=== PATIENT | female | born 1965 | race Caucasian/White ===

== ENCOUNTER 2020-06-17 22:10 | Emergency (ER) | payer OTHER ==
[~2020-06-17] VITALS: Ht 170.2 cm; Wt 75.0 kg
[2020-06-17 22:20] VITALS: BP 146/85
[2020-06-17] MEDS ORDERED: FLUORESCEIN 1MG EYE STRIP. OU ONE (22:45)
[2020-06-17] MEDS ORDERED: TETRACAINE 0.5% OPHTH SOLUTION 4ML BOTTLE. OU ONE (22:45)
--- NOTE | 2020-06-17 22:47 | PHYS DOC ---
General Adult EDM: Chief Complaint: EYE PROBLEMS HPI: HPI: Patient is a bilateral eye burning and pain. Patient states that she had taken her contacts out which are used every 2 weeks and watch a movie with her glasses on. Patient states she went to bed but woke up with severe eye burning in both eyes. Little bit of tearing but no discharge. Denies any recent chemical exposures, natural water exposure, bright lights or welding. Review of Systems: Review of Systems: Constitutional: Denies fever or chills Eyes: Denies change in visual acuity, bilateral eye pain and watering, no discharge, slight redness HENT: Denies nasal congestion or sore throat Respiratory: Denies cough or shortness of breath Cardiovascular: Denies chest pain or edema GI: Denies abdominal pain, nausea, vomiting, bloody stools or diarrhea : Denies dysuria Musculoskeletal: Denies back pain or joint pain Integument: Denies rash Neurologic: Denies headache, focal weakness or sensory changes Endocrine: Denies polyuria or polydipsia Lymphatic: Denies swollen glands Psychiatric: Denies depression or anxiety Current Medications: Current Meds: Current Medications Medications (Trade) Dose Ordered Sig/Juana Start Time Stop Time Status Last Admin Dose Admin Fluorescein Sodium (Ful-Daylin 1mg) 1 strip 1X ONCE 06/17/20 22:45 06/17/20 22:46 UNV Tetracaine HCl (Tetracaine) 1 drop 1X ONCE 06/17/20 22:45 06/17/20 22:46 UNV Allergies: Allergies: Allergies Coded Allergies Type Severity Reaction Last Updated Verified Penicillins Allergy Unknown 06/17/20 Yes erythromycin base Allergy Unknown 06/17/20 Yes Physical Exam: PE: Constitutional: Well developed, well nourished, mild acute distress, non-toxic appearance. [] HENT: Normocephalic, atraumatic, bilateral external ears normal, oropharynx [address], no oral exudates, nose normal. [] Eyes: PERRLA, EOMI, mild injection of the conjunctiva. Examined with fluorescein and in the right eye to slightly dendritic lesions showed fluorescein uptake at the 9 o'clock position and 4 o'clock position, neither lesion involved iris or cornea. Left eye shows single small dendritic lesion at 7 o'clock position also not involving the cornea. No pain with extraocular movements, no proptosis, negative Alise sign, no foreign body. Neck: Normal range of motion, no tenderness, supple, no stridor. [] Cardiovascular:Heart rate regular rhythm, no murmur [] Lungs & Thorax: Bilateral breath sounds clear to auscultation [] Abdomen: Bowel sounds normal, soft, no tenderness, no masses, no pulsatile masses. [] Skin: Warm, dry, no erythema, no rash. [] Back: No tenderness, no CVA tenderness. [] Extremities: No tenderness, no cyanosis, no clubbing, ROM intact, no edema. [] Neurologic: Alert and oriented X 3, normal motor function, normal sensory function, no focal deficits noted. [] Psychologic: Affect normal, judgement normal, mood normal. [] EKG: EKG: [] Radiology/Procedures: Radiology/Procedures: [] Heart Score: Risk Factors: Risk Factors: DM, Current or recent (<one month) smoker, HTN, HLP, family history of CAD, obesity. Risk Scores: Score 0 - 3: 2.5% MACE over next 6 weeks - Discharge Home Score 4 - 6: 20.3% MACE over next 6 weeks - Admit for Clinical Observation Score 7 - 10: 72.7% MACE over next 6 weeks - Early Invasive Strategies Course & Med Decision Making: Course & Med Decision Making Pain relieved with tetracaine. Patient's presentation is consistent with Pseudomonas infection secondary to contact lens use. Discussed risk factors for herpes infection and patient has none. Findings more consistent with Pseudomonas infection. Treated with antibiotics in the emergency department and sent home with bottle. [] Mary Disclaimer: Mary Disclaimer: This electronic medical record was generated, in whole or in part, using a voice recognition dictation system. Departure Departure: Impression: Primary Impression: Bacterial conjunctivitis of both eyes Disposition: 01 DC HOME SELF CARE/HOMELESS Condition: STABLE Referrals: PCP,NO (PCP) Patient Instructions: Bacterial Conjunctivitis Additional Instructions: 1 drop of antibiotic (Vigamox) in each eye every 8 hours for 7 days. Follow-up with your entry level buyer. Call your entry level buyer if not better in 2 days or worsening symptoms. Discard your contacts, contact case, and contact solution that you have been using and replace. Use glasses until symptoms completely resolved, no contacts until symptoms have completely resolved. Scripts Ketorolac Tromethamine (KETOROLAC TROMETHAMINE) 5 Ml Drops 1 DROP EACHEYE QID for pain for 5 Days, #5 ML 0 Refills Prov: DAYSI JORGENSEN MD 06/17/20 DAYSI JORGENSEN MD Jun 17, 2020 22:47
[2020-06-17] MEDS ORDERED: KETO5DRO72 EACHEYE (22:55)
[2020-06-17] MEDS ORDERED: MOXIFLOXACIN 0.5% OPHTH SOLUTION 3ML BOTTLE. OU ONE (23:15)
[2020-06-17] MEDS ORDERED: IBUPROFEN 600 MG TABLET. PO ONE (23:15)
== END 2020-06-17 23:10 | disposition home or self-care (01) ==
LOC: ER 22:10
DX: H10.89 Other conjunctivitis (principal); Z88.0 Allergy status to penicillin; Z88.1 Allergy status to other antibiotic agents
CPT/HCPCS: 99284

== ENCOUNTER 2020-07-15 21:02 | Emergency (ER) | payer OTHER ==
[~2020-07-15] VITALS: Ht 170.2 cm; Wt 77.6 kg
[~2020-07-15 21:02] MED LIST: KETO5DRO72 EACHEYE
[2020-07-15 21:10] VITALS: BP 126/84
[2020-07-15] MEDS ORDERED: PREDNISOLONE ACETATE 1% OD (21:51)
[2020-07-15] MEDS ORDERED: MOXIFLOXACIN 0.5% OPHTH SOLUTION 3ML BOTTLE. OU ONE (22:00)
[2020-07-15] MEDS ORDERED: oxyCODONE/APAP 5/325 1 TAB TABLET PO ONE (22:15)
[2020-07-15] MEDS ORDERED: TETRACAINE 0.5% OPHTH SOLUTION 4ML BOTTLE. OU ONE (22:15)
--- NOTE | 2020-07-15 22:35 | PHYS DOC ---
Past History Past Medical History: No Pertinent History Past Surgical History: Tonsillectomy Additional Past Surgical Histo: BREAST AUGMENTATION Alcohol Use: None Adult General Chief Complaint Chief Complaint: EYE PROBLEMS HPI HPI Patient is a 54-year-old female who presents with bilateral eye itching and clear watery discharge. States that a month ago she was in the emergency department and was diagnosed with bacterial conjunctivitis and started on antib iotic eyedrops. States that she seen her eye doctor twice since then, the last time being 10 days ago and was started on antibiotic eyedrops. States that she just finished the antibiotic eyedrops today and noticed that her eyes began itching again and watering. Denies any recent traumas, fevers, changes in vision, chest pain, shortness of breath, abdominal pain, nausea, vomiting. States that she is just having severe itching like she had when she was first diagnosed with the conjunctivitis and started on the antibiotic eyedrops. States that she has an appointment on Friday with her eye doctor but because of the itching wanted to see if there is anything that could be done. Review of Systems Review of Systems Review of systems otherwise unremarkable except for noted in HPI Current Medications Current Medications Current Medications Medications (Trade) Dose Ordered Sig/Juana Start Time Stop Time Status Last Admin Dose Admin Moxifloxacin HCl (Vigamox) 1 drop 1X ONCE 07/15/20 22:00 07/15/20 22:17 DC Oxycodone/ Acetaminophen (Percocet 5/325) 1 tab 1X ONCE 07/15/20 22:15 07/15/20 22:16 DC 07/15/20 22:18 1 TAB Tetracaine HCl (Tetracaine) 1 drop 1X ONCE 07/15/20 22:15 07/15/20 22:16 DC 07/15/20 22:18 1 DROP Allergies Allergies Allergies Coded Allergies Type Severity Reaction Last Updated Verified Penicillins Allergy Unknown 07/15/20 Yes erythromycin base Allergy Unknown 07/15/20 Yes Physical Exam Physical Exam Constitutional: Well developed, well nourished, no acute distress, non-toxic appearance. [] HENT: Normocephalic, atraumatic, bilateral external ears normal, oropharynx moist, no oral exudates, nose normal. [] Eyes: PERRLA, EOMI, conjunctive injected bilaterally with clear watery discharge. Vision normal. Neck: Normal range of motion, no tenderness, supple, no stridor. [] Cardiovascular:Heart rate regular rhythm, no murmur [] Skin: Warm, dry, no erythema, no rash. [] Neurologic: Alert and oriented X 3, normal motor function, normal sensory function, no focal deficits noted. [] Psychologic: Affect normal, judgement normal, mood normal. [] EKG EKG [] Radiology/Procedures Radiology/Procedures [] Heart Score Risk Factors: Risk Factors: DM, Current or recent (<one month) smoker, HTN, HLP, family history of CAD, obesity. Risk Scores: Risk Factors: DM, Current or recent (<one month) smoker, HTN, HLP, family history of CAD, obesity. Course & Med Decision Making Course & Med Decision Making Patient is a 54-year-old female who presents with bilateral eye itching and watery discharge Vital signs not concerning. Physical exam noted above. Patient has no change in vision and no eye pain, just reporting itching and watery discharge. States that it feels like it did when she was first diagnosed with bacterial conjunctivitis. States that she did finish her steroid eyedrops today and has an appointment with her eye doctor on Friday. Tetracaine was placed in both eyes. This gave significant relief, patient was grateful. Patient started on moxifloxacin eyedrops for the next 3 days which will give her time to see her eye doctor in 36 hours, Friday morning. Given pain recommendations as well. Advised to use moisturizing eyedrops in between her antibiotic eyedrops as well. Advised to come back to the emergency department immediately with any new or concerning symptoms. Patient grateful, verbalized understanding and agreed with plan of discharge. [] Dragon Disclaimer Dragon Disclaimer This electronic medical record was generated, in whole or in part, using a voice recognition dictation system. Departure Departure: Disposition: 01 DC HOME SELF CARE/HOMELESS Condition: GOOD Referrals: NON,STAFF (PCP) Scripts Oxycodone Hcl/Acetaminophen (PERCOCET 5-325 MG TABLET ) 1 Each Tablet 1 TAB PO PRN BID PRN for PAIN MDD 2 Tablet(s) for 5 Days, #10 TAB 0 Refills Prov: TURNER GANDHI MD 07/15/20 Moxifloxacin Hcl (VIGAMOX) 3 Ml Drops 1 DROP EACHEYE TID PRN for ITCHING for 5 Days, #1 BOTTLE Prov: TURNER GANDHI MD 07/15/20 TURNER GANDHI MD Jul 15, 2020 22:35
[2020-07-15] MEDS ORDERED: MOXI3DRO18 EACHEYE (22:39)
[2020-07-15] MEDS ORDERED: OXYC1TAB15 PO (22:41)
== END 2020-07-15 22:50 | disposition home or self-care (01) ==
LOC: ER 21:02
DX: H57.89 Other specified disorders of eye and adnexa (principal); Z90.89 Acquired absence of other organs; Z98.890 Other specified postprocedural states
CPT/HCPCS: 99283